=== PATIENT | male | born 1950 | race Caucasian/White ===

== ENCOUNTER 2017-06-16 07:21 | Day surgery (SDC) | payer MEDICARE, OTHER ==
[~2017-06-16 07:21] MED LIST: SOD CHLORIDE 0.9% 1,000 ML IV
[2017-06-16 08:23] LABS: ADD MAN DIFF? NO
[2017-06-16 08:29] LABS: BASOPHIL # 0.1 10^3/ul (0.0-0.1); BASOPHILS % 0.7 % (0.0-2.0); EOSINOPHILS # 0.2 10^3/ul (0.0-0.5); EOSINOPHILS % 2.8 % (0.0-7.0); HEMATOCRIT 47.3 % (42.0-52.0); HEMOGLOBIN 15.6 g/dl (14.0-18.0); LYMPHOCYTES # 2.6 10^3/ul (0.8-2.9); LYMPHOCYTES % 35.8 % (15.0-51.0); MEAN CORPUSCULAR VOLUME 84.8 fl (82.0-101.0); MEAN PLATELET VOLUME 9.8 fl (7.4-10.4); MONOCYTE # 0.6 10^3/ul (0.3-0.9); MONOCYTES % 7.7 % (0.0-11.0); NEUTROPHIL # 3.7 10^3/ul (1.6-7.5); NEUTROPHILS % 52.4 % (39.0-77.0); PLATELET COUNT 209 10^3/UL (140-415); RED BLOOD COUNT 5.58 10^6/ul (4.70-6.10); RED CELL DISTRIBUTION WIDTH 13.2 % (11.5-14.5)
[2017-06-16 08:29] LABS: WHITE BLOOD COUNT 7.1 10^3/ul (4.8-10.8)
[2017-06-16 08:49] LABS: CARBON DIOXIDE 27 mmol/L (21-31); CHLORIDE 107 mmol/L (97-110)
[2017-06-16 08:50] LABS: ALANINE AMINOTRANSFERASE 26 IU/L (13-69); ALBUMIN/GLOBULIN RATIO 1.37; ALKALINE PHOSPHATASE 54 IU/L (42-121); ANION GAP 14 (8-16); ASPARTATE AMINO TRANSFERASE 18 IU/L (15-46); CHOLESTEROL 149 mg/dl (100-200); CREATINE KINASE 62 IU/L (23-200); GLUCOSE 205 mg/dl (70-220); HDL CHOLESTEROL 37 mg/dl (30-78); LDL CHOLESTEROL,CALCULATED 81 mg/dl; TOTAL PROTEIN 6.9 g/dl (6.1-8.1); TRIGLYCERIDES 157 mg/dl (0-149)
[2017-06-16 08:55] LABS: SODIUM 143 mmol/L (135-144)
[2017-06-16 08:56] LABS: BILIRUBIN,INDIRECT 0.7 mg/dl (0-1.1); BILIRUBIN,TOTAL 0.7 mg/dl (0.2-1.3); BLOOD UREA NITROGEN 26 mg/dl (7-20); CALCIUM 9.4 mg/dl (8.4-10.2); CREATININE 1.03 mg/dl (0.61-1.24); POTASSIUM 4.9 mmol/L (3.5-5.1)
[2017-06-16 08:57] LABS: CK INDEX 1.9; TROPONIN-I 0.029 ng/ml (0.00-0.12)
[2017-06-16 08:58] LABS: CK-MB 1.18 ng/ml (0.0-2.4)
[2017-06-16 09:09] LABS: INR 0.92; PROTIME 12.4 Sec (11.9-14.9)
[2017-06-16 09:10] LABS: PARTIAL THROMBOPLASTIN TIME 28.4 Sec (25.0-35.0)
[2017-06-16] MEDS ORDERED: LIDOCAINE 1% (MDV) 20 ML INJ (09:44)
[2017-06-16] MEDS ORDERED: IODIXANOL LOCM 50 ML BTL (09:44)
[2017-06-16] MEDS ORDERED: MIDAZOLAM 1 MG/ML 2 ML INJ (09:44)
[2017-06-16] MEDS ORDERED: FENTAnyl 50 MCG/ML VIAL ×2 (09:44→11:14)
[2017-06-16] MEDS ORDERED: BIVALIRUDIN 250MG /NS 50 ML 50 ML IVPB (11:07)
[2017-06-16] MEDS ORDERED: IOHEXOL 350MG/ML 50 ML BTL (11:07)
[2017-06-16] MEDS ORDERED: IODIXANOL LOCM 100 ML BTL ×2 (11:07)
[2017-06-16] MEDS ORDERED: ACETAMINOPHEN 325 MG TAB PO (11:30)
[2017-06-16] MEDS ORDERED: morphine 2 MG INJ IV (11:30)
[2017-06-16] MEDS: SOD CHLORIDE 0.9% 1,000 ML IV (11:30)
[2017-06-16] MEDS ORDERED: GLUCOSE GEL 15 GRAM TUBE BUCCAL (12:00)
[2017-06-16] MEDS ORDERED: DEXTROSE 50% 50 ML SYRINGE IV ×2 (12:00)
[2017-06-16] MEDS ORDERED: GLUCAGON 1 MG INJ IM (12:00)
[2017-06-16] MEDS ORDERED: GLUCOSE GEL 15 GRAM TUBE PO ×2 (12:00)
[2017-06-16] MEDS: INSULIN ASPART [NOVOLOG] 3 ML PEN SC (16:30)
[2017-06-17] MEDS ORDERED: ACCU-CHEK XX (02:00)
== END 2017-06-16 19:30 | disposition home or self-care (01) ==
LOC: SDS 07:21
DX: I73.9 Peripheral vascular disease, unspecified (principal); I25.10 Atherosclerotic heart disease of native coronary artery without angina pectoris
CPT/HCPCS: 37224; 75710; 80053; 80061; 82550; 82553; 82962; 84484; 85025; 85610; 85730; 93005

== ENCOUNTER 2017-09-26 05:52 | Inpatient (IN) | payer MEDICARE, OTHER ==
[2017-09-26] MEDS: NITROGLYCERIN (SL) 0.4 MG TAB SL (06:14)
[2017-09-26 06:16] LABS: ADD MAN DIFF? NO
[2017-09-26] MEDS: FUROSEMIDE 40 MG INJ IV (06:18)
[2017-09-26 06:19] LABS: WHITE BLOOD COUNT 20.7 10^3/ul (4.8-10.8)
[2017-09-26 06:19] LABS: ABNORMAL IP MESSAGE 1; BASOPHIL # 0.1 10^3/ul (0.0-0.1); BASOPHILS % 0.7 % (0.0-2.0); EOSINOPHILS # 0.4 10^3/ul (0.0-0.5); EOSINOPHILS % 1.8 % (0.0-7.0); HEMATOCRIT 54.6 % (42.0-52.0); HEMOGLOBIN 17.1 g/dl (14.0-18.0); LYMPHOCYTES # 11.4 10^3/ul (0.8-2.9); MEAN CORPUSCULAR HEMOGLOBIN 27.7 pg (29.0-33.0); MEAN CORPUSCULAR HGB CONC 31.3 g/dl (32.0-37.0); MEAN CORPUSCULAR VOLUME 88.5 fl (82.0-101.0); MEAN PLATELET VOLUME 10.5 fl (7.4-10.4); MONOCYTE # 1.1 10^3/ul (0.3-0.9); MONOCYTES % 5.4 % (0.0-11.0); NEUTROPHIL # 7.5 10^3/ul (1.6-7.5); NEUTROPHILS % 36.4 % (39.0-77.0); PLATELET COUNT 334 10^3/UL (140-415); POSITIVE DIFF @See below; RED BLOOD COUNT 6.17 10^6/ul (4.70-6.10); RED CELL DISTRIBUTION WIDTH 13.7 % (11.5-14.5)
[2017-09-26 06:22] LABS: AADO2 Arterial 592.2 mmHg (7.0-24.0); Allen Test ACCEPTAB; Arterial Base Excess -7.8 mmol/L (-3.0-3); Arterial Blood Gas Oxygen Sat 90.4 mmHG (95.0-98.0); Arterial COHb 0.2 % (0.0-3.0); Arterial HCO3 20.2 mmol/L (22.0-26.0); Arterial MetHb 0.2 % (0.0-1.5); Arterial Total Hemglobin 16.7 g/dl (12.0-18.0); Arterial pCO2 50.6 mmhg (35-45); Blood Gas IEPAP 18/8; Blood Gas PS 10; MODE MASK - BIPAP; Site Left Radial
[2017-09-26 06:38] LABS: INR 0.92; PROTIME 12.4 Sec (11.9-14.9)
[2017-09-26 06:39] LABS: PARTIAL THROMBOPLASTIN TIME 28.1 Sec (25.0-35.0)
[2017-09-26] MEDS: ASPIRIN 81 MG TAB PO (06:45)
[2017-09-26 06:49] LABS: ALANINE AMINOTRANSFERASE 20 IU/L (13-69); ALBUMIN 4.2 g/dl (3.3-4.9); ALKALINE PHOSPHATASE 77 IU/L (42-121); ANION GAP 18 (8-16); ASPARTATE AMINO TRANSFERASE 27 IU/L (15-46); BILIRUBIN,INDIRECT 0.5 mg/dl (0-1.1); BILIRUBIN,TOTAL 0.5 mg/dl (0.2-1.3); BLOOD UREA NITROGEN 20 mg/dl (7-20); CALCIUM 9.2 mg/dl (8.4-10.2); CARBON DIOXIDE 19 mmol/L (21-31); CHLORIDE 107 mmol/L (97-110); CREATININE 1.05 mg/dl (0.61-1.24); LIPASE 172 U/L (23-300); POTASSIUM 4.6 mmol/L (3.5-5.1); SODIUM 139 mmol/L (135-144); TOTAL PROTEIN 7.2 g/dl (6.1-8.1)
[2017-09-26 06:52] LABS: GLUCOSE 449 mg/dl (70-220)
[2017-09-26] MEDS: CEFTRIAXONE 1 GM/50 ML (PMX) 50 ML IVPB ×2 (06:56→22:01)
[2017-09-26 07:01] LABS: B-TYPE NATRIURETIC PEPTIDE 1180 PG/ML (0-125); TROPONIN-I 0.051 ng/ml (0.000-0.120)
[2017-09-26] MEDS: AZITHROMYCIN 500MG/NS (PMX) 250 ML IVPB (07:43)
[2017-09-26 07:54] LABS: ADD UMIC YES; UR ASCORBIC ACID NEGATIVE (NEGATIVE); UR BILIRUBIN (Dip) NEGATIVE (NEGATIVE); UR BLOOD (Dip) 1+ mg/dL (NEGATIVE); UR CLARITY CLEAR (CLEAR); UR COLOR STRAW (YELLOW); UR GLUCOSE (Dip) 3+ mg/dL (NEGATIVE); UR KETONES (Dip) NEGATIVE (NEGATIVE); UR LEUKOCYTE ESTERASE (Dip) NEGATIVE Leu/ul (NEGATIVE); UR NITRITE (Dip) NEGATIVE (NEGATIVE); UR RBC 0 /HPF (0-5); UR SPECIFIC GRAVITY (Dip) 1.007 (1.003-1.030); UR TOTAL PROTEIN (Dip) 1+ mg/dl (NEGATIVE); UR UROBILINOGEN (Dip) NEGATIVE (NEGATIVE); UR WBC 1 /HPF (0-5)
[2017-09-26] MEDS ORDERED: ACETAMINOPHEN 325 MG TAB PO (08:00)
[2017-09-26] MEDS ORDERED: ONDANSETRON 4 MG INJ IV (08:00)
[2017-09-26 08:13] LABS: LACTIC ACID 2.6 mmol/L (0.5-2.0)
[2017-09-26 08:16] LABS: AADO2 Arterial 430.5 mmHg (7.0-24.0); Allen Test ACCEPTAB; Arterial Base Excess -5.8 mmol/L (-3.0-3); Arterial Blood Gas Oxygen Sat 99.1 mmHG (95.0-98.0); Arterial COHb 0.3 % (0.0-3.0); Arterial Fraction of Oxyhgb 98.5 % (93.0-99.0); Arterial HCO3 20.8 mmol/L (22.0-26.0); Arterial MetHb 0.3 % (0.0-1.5); Arterial Total Hemglobin 16.6 g/dl (12.0-18.0); Arterial pCO2 44.8 mmhg (35-45); Blood Gas IEPAP 18/8; MODE MASK - BIPAP; Site Right Radial
[2017-09-26] MEDS: SOD CHLORIDE 0.9% 1,000 ML IV (08:46)
[2017-09-26 08:55] LABS: LACTIC ACID 2.4 mmol/L (0.5-2.0)
[2017-09-26] MEDS: LORAZEPAM 2 MG INJ IV (09:21)
[2017-09-26 11:07] LABS: LACTIC ACID 1.8 mmol/L (0.5-2.0)
[2017-09-26] MEDS ORDERED: DEXTROSE 50% 50 ML SYRINGE IV ×4 (14:00)
[2017-09-26] MEDS ORDERED: GLUCOSE GEL 15 GRAM TUBE PO ×4 (14:00)
[2017-09-26] MEDS ORDERED: GLUCAGON 1 MG INJ IM ×2 (14:00)
[2017-09-26] MEDS ORDERED: GLUCOSE GEL 15 GRAM TUBE BUCCAL ×2 (14:00)
[2017-09-26] MEDS: metFORMIN 850 MG TAB PO (18:23)
[2017-09-26] MEDS: INSULIN ASPART [NOVOLOG] 3 ML PEN SC ×2 (18:28→22:08)
[2017-09-26] MEDS: INSULIN GLARGINE [LANTus] (100 UNITS/ML) SYG SC (21:00)
[2017-09-26] MEDS: ATORVASTATIN 10 MG TAB PO (21:10)
[2017-09-26] MEDS: ALBUTEROL/IPRATROPIUM (NEB) 3 ML AMP HHN (22:12)
[2017-09-27] MEDS: ACCU-CHEK XX (02:00)
[2017-09-27] MEDS: PANTOPRAZOLE (EC) 40 MG TAB PO (06:46)
[2017-09-27] MEDS: INSULIN ASPART [NOVOLOG] 3 ML PEN SC ×6 (08:03→21:37)
[2017-09-27] MEDS: metFORMIN 850 MG TAB PO ×3 (08:14→17:33)
[2017-09-27] MEDS: PAROXETINE (CR) 12.5 MG TAB PO (08:15)
[2017-09-27] MEDS: ASPIRIN 81 MG TAB PO (08:17)
[2017-09-27] MEDS: CLOPIDOGREL 75 MG TAB PO (08:17)
[2017-09-27] MEDS: CEFTRIAXONE 1 GM/50 ML (PMX) 50 ML IVPB ×2 (08:51→21:38)
[2017-09-27] MEDS: SPIRONOLACTONE 25 MG TAB PO (09:00)
[2017-09-27] MEDS: ALLOPURINOL 100 MG TAB PO (09:02)
[2017-09-27 09:03] LABS: ADD MAN DIFF? NO
[2017-09-27 09:10] LABS: WHITE BLOOD COUNT 8.2 10^3/ul (4.8-10.8)
[2017-09-27 09:10] LABS: BASOPHIL # 0.1 10^3/ul (0.0-0.1); BASOPHILS % 0.6 % (0.0-2.0); EOSINOPHILS # 0.1 10^3/ul (0.0-0.5); EOSINOPHILS % 1.7 % (0.0-7.0); HEMATOCRIT 37.9 % (42.0-52.0); HEMOGLOBIN 12.5 g/dl (14.0-18.0); LYMPHOCYTES # 2.1 10^3/ul (0.8-2.9); MEAN CORPUSCULAR HEMOGLOBIN 27.7 pg (29.0-33.0); MEAN PLATELET VOLUME 10.6 fl (7.4-10.4); MONOCYTE # 0.5 10^3/ul (0.3-0.9); MONOCYTES % 6.6 % (0.0-11.0); NEUTROPHIL # 5.3 10^3/ul (1.6-7.5); NEUTROPHILS % 64.9 % (39.0-77.0); PLATELET COUNT 170 10^3/UL (140-415); RED BLOOD COUNT 4.51 10^6/ul (4.70-6.10)
[2017-09-27 09:33] LABS: INR 1.08; PROTIME 14.1 Sec (11.9-14.9); PT RATIO 1.1
[2017-09-27 09:35] LABS: CREATINE KINASE 59 IU/L (23-200)
[2017-09-27 09:40] LABS: ALANINE AMINOTRANSFERASE 24 IU/L (13-69); ALBUMIN 3.4 g/dl (3.3-4.9); ALBUMIN/GLOBULIN RATIO 1.21; ALKALINE PHOSPHATASE 44 IU/L (42-121); ANION GAP 10 (8-16); ASPARTATE AMINO TRANSFERASE 18 IU/L (15-46); BLOOD UREA NITROGEN 20 mg/dl (7-20); CALCIUM 8.5 mg/dl (8.4-10.2); CARBON DIOXIDE 28 mmol/L (21-31); CHLORIDE 103 mmol/L (97-110); CHOL/HDL RATIO 3.5 RATIO; CHOLESTEROL 137 mg/dl (100-200); CREATININE 0.86 mg/dl (0.61-1.24); GLUCOSE 214 mg/dl (70-220); HDL CHOLESTEROL 39 mg/dl (30-78); LDL CHOLESTEROL,CALCULATED 72 mg/dl; POTASSIUM 3.8 mmol/L (3.5-5.1); SODIUM 137 mmol/L (135-144); TOTAL PROTEIN 6.2 g/dl (6.1-8.1); TRIGLYCERIDES 128 mg/dl (0-149)
[2017-09-27 09:41] LABS: DIGOXIN 0.4 ng/ml (1.0-2.0)
[2017-09-27 09:45] LABS: B-TYPE NATRIURETIC PEPTIDE 2940 PG/ML (0-125)
[2017-09-27 09:47] LABS: CK INDEX 1.7; CK-MB 1.03 ng/ml (0.0-2.4); TROPONIN-I 0.117 ng/ml (0.000-0.120)
[2017-09-27 09:48] LABS: MAGNESIUM 1.3 mg/dl (1.7-2.5)
[2017-09-27 09:48] LABS: PHOSPHORUS 3.3 mg/dl (2.5-4.9)
[2017-09-27] MEDS: AZITHROMYCIN 500MG/NS (PMX) 250 ML IVPB (09:48)
[2017-09-27 10:06] LABS: THYROID STIMULATING HORMONE 0.839 MIU/L (0.465-4.680)
[2017-09-27 10:36] LABS: FREE T4 (FREE THYROXINE) 0.99 ng/dl (0.78-2.44)
[2017-09-27] MEDS: FLUTICASONE/VILANTEROL 100-25 INH (12:38)
[2017-09-27] MEDS: DIGOXIN 0.125 MG TAB PO (12:39)
[2017-09-27] MEDS: ACETAMINOPHEN 500 MG TAB PO (13:44)
[2017-09-27] MEDS: MAGNESIUM SULFATE 2 GM/50 ML 50 ML IVPB (14:08)
[2017-09-27] MEDS ORDERED: LORAZEPAM 2 MG INJ IV (19:00)
[2017-09-27] MEDS ORDERED: INSULIN GLARGINE [LANTus] (100 UNITS/ML) SYG SC (20:00)
[2017-09-27] MEDS: ATORVASTATIN 10 MG TAB PO (21:39)
[2017-09-27] MEDS: INSULIN GLARGINE [LANTus] (100 UNITS/ML) SYG SC (21:42)
[2017-09-27] MEDS: LORAZEPAM 0.5 MG TAB PO (22:40)
[2017-09-28] MEDS: ACCU-CHEK XX (02:00)
[2017-09-28 06:35] LABS: ADD MAN DIFF? NO
[2017-09-28 06:40] LABS: BASOPHILS % 0.6 % (0.0-2.0); EOSINOPHILS # 0.2 10^3/ul (0.0-0.5); EOSINOPHILS % 2.8 % (0.0-7.0); HEMATOCRIT 36.9 % (42.0-52.0); HEMOGLOBIN 12.2 g/dl (14.0-18.0); LYMPHOCYTES # 2.2 10^3/ul (0.8-2.9); LYMPHOCYTES % 29.8 % (15.0-51.0); MEAN CORPUSCULAR HEMOGLOBIN 28.3 pg (29.0-33.0); MEAN CORPUSCULAR HGB CONC 33.1 g/dl (32.0-37.0); MEAN CORPUSCULAR VOLUME 85.6 fl (82.0-101.0); MEAN PLATELET VOLUME 10.3 fl (7.4-10.4); MONOCYTE # 0.6 10^3/ul (0.3-0.9); MONOCYTES % 8.5 % (0.0-11.0); NEUTROPHIL # 4.2 10^3/ul (1.6-7.5); NEUTROPHILS % 57.9 % (39.0-77.0); PLATELET COUNT 166 10^3/UL (140-415); RED BLOOD COUNT 4.31 10^6/ul (4.70-6.10); RED CELL DISTRIBUTION WIDTH 13.6 % (11.5-14.5)
[2017-09-28 06:40] LABS: WHITE BLOOD COUNT 7.3 10^3/ul (4.8-10.8)
[2017-09-28 07:22] LABS: ANION GAP 9 (8-16); BLOOD UREA NITROGEN 19 mg/dl (7-20); CALCIUM 8.3 mg/dl (8.4-10.2); CARBON DIOXIDE 26 mmol/L (21-31); CHLORIDE 104 mmol/L (97-110); CREATININE 0.83 mg/dl (0.61-1.24); GLUCOSE 234 mg/dl (70-220); MAGNESIUM 1.6 mg/dl (1.7-2.5); PHOSPHORUS 3.1 mg/dl (2.5-4.9); POTASSIUM 4.3 mmol/L (3.5-5.1); SODIUM 135 mmol/L (135-144)
[2017-09-28] MEDS: PANTOPRAZOLE (EC) 40 MG TAB PO (07:32)
[2017-09-28] MEDS: AZITHROMYCIN 500MG/NS (PMX) 250 ML IVPB (07:50)
[2017-09-28] MEDS: CEFTRIAXONE 1 GM/50 ML (PMX) 50 ML IVPB ×2 (07:51→20:48)
[2017-09-28] MEDS: ASPIRIN 81 MG TAB PO (07:52)
[2017-09-28] MEDS: ALLOPURINOL 100 MG TAB PO (07:52)
[2017-09-28] MEDS: SPIRONOLACTONE 25 MG TAB PO (07:52)
[2017-09-28] MEDS: EMPAGLIFLOZIN 10 MG TABLET PO (07:52)
[2017-09-28] MEDS: CLOPIDOGREL 75 MG TAB PO (07:52)
[2017-09-28] MEDS: FLUTICASONE/VILANTEROL 100-25 INH (07:52)
[2017-09-28] MEDS: PAROXETINE (CR) 12.5 MG TAB PO (07:52)
[2017-09-28] MEDS: INSULIN ASPART [NOVOLOG] 3 ML PEN SC ×7 (08:22→20:49)
[2017-09-28] MEDS: ALBUTEROL/IPRATROPIUM (NEB) 3 ML AMP HHN (08:27)
[2017-09-28] MEDS: MAGNESIUM SULFATE 2 GM/50 ML 50 ML IVPB (09:17)
[2017-09-28] MEDS: DIGOXIN 0.125 MG TAB PO (12:35)
[2017-09-28] MEDS: ACETAMINOPHEN 500 MG TAB PO (15:35)
[2017-09-28] MEDS: ATORVASTATIN 10 MG TAB PO (20:48)
[2017-09-28] MEDS: INSULIN GLARGINE [LANTus] (100 UNITS/ML) SYG SC (20:50)
[2017-09-28] MEDS: LORAZEPAM 0.5 MG TAB PO (21:00)
[2017-09-29] MEDS: ACCU-CHEK XX (02:00)
[2017-09-29] MEDS: PANTOPRAZOLE (EC) 40 MG TAB PO (06:19)
[2017-09-29] MEDS: CEFTRIAXONE 1 GM/50 ML (PMX) 50 ML IVPB (08:08)
[2017-09-29] MEDS: AZITHROMYCIN 500MG/NS (PMX) 250 ML IVPB (08:10)
[2017-09-29] MEDS: CLOPIDOGREL 75 MG TAB PO (08:14)
[2017-09-29] MEDS: ASPIRIN 81 MG TAB PO (08:14)
[2017-09-29] MEDS: SPIRONOLACTONE 25 MG TAB PO (08:14)
[2017-09-29] MEDS: EMPAGLIFLOZIN 10 MG TABLET PO (08:14)
[2017-09-29] MEDS: ALLOPURINOL 100 MG TAB PO (08:14)
[2017-09-29] MEDS: FLUTICASONE/VILANTEROL 100-25 INH (08:15)
[2017-09-29] MEDS: PAROXETINE (CR) 12.5 MG TAB PO (08:19)
[2017-09-29] MEDS: INSULIN ASPART [NOVOLOG] 3 ML PEN SC ×4 (08:26→11:51)
[2017-09-29 09:59] LABS: ANION GAP 11 (8-16); BLOOD UREA NITROGEN 21 mg/dl (7-20); CALCIUM 8.9 mg/dl (8.4-10.2); CARBON DIOXIDE 27 mmol/L (21-31); CHLORIDE 104 mmol/L (97-110); CREATININE 0.94 mg/dl (0.61-1.24); GLUCOSE 170 mg/dl (70-220); MAGNESIUM 1.9 mg/dl (1.7-2.5); POTASSIUM 4.4 mmol/L (3.5-5.1); SODIUM 138 mmol/L (135-144)
[2017-09-29] MEDS: DIGOXIN 0.125 MG TAB PO (11:47)
[2017-10-04 14:06] LABS: PROCALCITONIN 4.76 ng/mL (<0.10)
== END 2017-09-29 12:40 | disposition home or self-care (01) | DRG 871 ==
LOC: E/R 05:52 → TEL 07:48
DX: A41.9 Sepsis, unspecified organism (principal); J18.9 Pneumonia, unspecified organism; J96.01 Acute respiratory failure with hypoxia; E11.10 Type 2 diabetes mellitus with ketoacidosis without coma; I50.43 Acute on chronic combined systolic (congestive) and diastolic (congestive) heart failure; E87.2 Acidosis; N39.0 Urinary tract infection, site not specified; J44.1 Chronic obstructive pulmonary disease with (acute) exacerbation; I11.0 Hypertensive heart disease with heart failure; I25.5 Ischemic cardiomyopathy; I25.10 Atherosclerotic heart disease of native coronary artery without angina pectoris; E78.5 Hyperlipidemia, unspecified; K21.9 Gastro-esophageal reflux disease without esophagitis; B95.4 Other streptococcus as the cause of diseases classified elsewhere; I73.9 Peripheral vascular disease, unspecified; L30.9 Dermatitis, unspecified; Y95 Nosocomial condition; Z79.4 Long term (current) use of insulin; Z79.02 Long term (current) use of antithrombotics/antiplatelets; Z79.82 Long term (current) use of aspirin; Z87.891 Personal history of nicotine dependence; Z95.0 Presence of cardiac pacemaker
CPT/HCPCS: 36415; 36600; 71045; 80048; 80053; 80061; 80162; 81001; 82550; 82553; 82803; 82962; 83605; 83690; 83735; 83880; 84100; 84145; 84439; 84443; 84484; 85025; 85610; 85730; 87040; 87070; 87086; 93005; 94640; 94660; 94664; 96374; 96375; 97161; 99291-25

== ENCOUNTER 2018-05-10 11:34 | Observation (INO) | payer MEDICARE, OTHER ==
[2018-05-10 15:34] LABS: HEMATOCRIT 45.1 % (42.0-52.0); MEAN CORPUSCULAR HEMOGLOBIN 28.4 pg (29.0-33.0); MEAN CORPUSCULAR HGB CONC 33.3 g/dl (32.0-37.0); MEAN CORPUSCULAR VOLUME 85.4 fl (82.0-101.0); MEAN PLATELET VOLUME 10.3 fl (7.4-10.4); POSITIVE DIFF @See below; RED BLOOD COUNT 5.28 10^6/ul (4.70-6.10); RED CELL DISTRIBUTION WIDTH 12.5 % (11.5-14.5)
[2018-05-10 15:34] LABS: WHITE BLOOD COUNT 5.5 10^3/ul (4.8-10.8)
[2018-05-10 15:35] LABS: PLATELET COUNT 258 10^3/UL (140-415)
[2018-05-10 15:36] LABS: ADD MAN DIFF? YES
[2018-05-10 15:47] LABS: ALANINE AMINOTRANSFERASE 16 IU/L (13-69); ALBUMIN 4.5 g/dl (3.3-4.9); ALBUMIN/GLOBULIN RATIO 1.21; ANION GAP 11 (5-13); ASPARTATE AMINO TRANSFERASE 34 IU/L (15-46); BILIRUBIN,INDIRECT 0.6 mg/dl (0-1.1); BILIRUBIN,TOTAL 0.6 mg/dl (0.2-1.3); BLOOD UREA NITROGEN 25 mg/dl (7-20); CALCIUM 9.9 mg/dl (8.4-10.2); CARBON DIOXIDE 27 mmol/L (21-31); CHLORIDE 101 mmol/L (97-110); Estimated GFR > 60 mL/min (>60); GLUCOSE 170 mg/dl (70-220); POTASSIUM 5.2 mmol/L (3.5-5.1); SODIUM 139 mmol/L (135-144); TOTAL PROTEIN 8.2 g/dl (6.1-8.1)
[2018-05-10 15:59] LABS: B-TYPE NATRIURETIC PEPTIDE 2020 PG/ML (0-125); TROPONIN-I 0.014 ng/ml (0.000-0.120)
[2018-05-10 16:06] LABS: LACTIC ACID 1.6 mmol/L (0.5-2.0)
[2018-05-10 16:08] LABS: ANISOCYTOSIS 3+ (0-0); BAND NEUTROPHILS #M 0.2 10^3/ul (0.0-0.6); BAND NEUTROPHILS % (M) 5 % (0-4); LYMPHOCYTES #M 1.6 10^3/ul (0.8-2.9); LYMPHOCYTES % (M) 30 % (15-51); MICROCYTOSIS 3+ (0-0); MONOCYTE #M 0.5 10^3/ul (0.3-0.9); MONOCYTES % (M) 10 % (0-11); PLATELET ESTIMATE NORMAL; POIKILOCYTOSIS 1+ (0-0); REACTIVE LYMPHOCYTES #M 0.6 10^3/ul (0.0-0.0); REACTIVE LYMPHOCYTES% (M) 11 % (0-0); SEG NEUT #M 2.4 10^3/ul (1.6-7.5); SEGMENTED NEUTROPHILS (M) % 44 % (39-77); SMUDGE%M 6 % (0-0)
[2018-05-10 16:23] LABS: INR 0.91; PROTIME 12.4 Sec (11.9-14.9)
[2018-05-10 16:24] LABS: PARTIAL THROMBOPLASTIN TIME 30.4 Sec (23.0-35.0)
[2018-05-10 16:33] LABS: ALKALINE PHOSPHATASE 47 IU/L (42-121)
[2018-05-10] MEDS: FUROSEMIDE 20 MG INJ IV (19:00)
[2018-05-10] MEDS: ACCU-CHEK XX (21:00)
[2018-05-10] MEDS: ATORVASTATIN 20 MG TAB PO (23:40)
[2018-05-10] MEDS: FISH OIL 1,000 MG CAP PO (23:43)
[2018-05-11] MEDS: ZOLPIDEM 5 MG TAB PO (00:13)
[2018-05-11 00:44] LABS: ADD UMIC YES; UR ASCORBIC ACID NEGATIVE (NEGATIVE); UR BILIRUBIN (Dip) NEGATIVE (NEGATIVE); UR BLOOD (Dip) 2+ mg/dL (NEGATIVE); UR CLARITY CLEAR (CLEAR); UR COLOR YELLOW (YELLOW); UR GLUCOSE (Dip) 1+ mg/dL (NEGATIVE); UR KETONES (Dip) NEGATIVE (NEGATIVE); UR LEUKOCYTE ESTERASE (Dip) NEGATIVE Leu/ul (NEGATIVE); UR NITRITE (Dip) NEGATIVE (NEGATIVE); UR RBC 2 /HPF (0-5); UR SPECIFIC GRAVITY (Dip) 1.014 (1.003-1.030); UR TOTAL PROTEIN (Dip) NEGATIVE (NEGATIVE); UR UROBILINOGEN (Dip) NEGATIVE (NEGATIVE); UR WBC 0 /HPF (0-5)
[2018-05-11 01:48] LABS: SODIUM,URINE RANDOM 112 mmol/L (30-90)
[2018-05-11 01:48] LABS: CREATININE,URINE RANDOM 113.25 mg/dl (20-370)
[2018-05-11] MEDS: PANTOPRAZOLE (EC) 40 MG TAB PO (06:09)
[2018-05-11 07:51] LABS: ADD MAN DIFF? NO
[2018-05-11] MEDS: ACCU-CHEK XX (07:53)
[2018-05-11 07:54] LABS: BASOPHILS % 0.2 % (0.0-2.0); EOSINOPHILS # 0.1 10^3/ul (0.0-0.5); EOSINOPHILS % 1.7 % (0.0-7.0); HEMATOCRIT 39.4 % (42.0-52.0); HEMOGLOBIN 12.8 g/dl (14.0-18.0); LYMPHOCYTES # 1.7 10^3/ul (0.8-2.9); LYMPHOCYTES % 35.5 % (15.0-51.0); MEAN CORPUSCULAR HEMOGLOBIN 27.9 pg (29.0-33.0); MEAN CORPUSCULAR HGB CONC 32.5 g/dl (32.0-37.0); MEAN CORPUSCULAR VOLUME 85.8 fl (82.0-101.0); MEAN PLATELET VOLUME 10.2 fl (7.4-10.4); MONOCYTE # 0.5 10^3/ul (0.3-0.9); MONOCYTES % 10.9 % (0.0-11.0); NEUTROPHIL # 2.4 10^3/ul (1.6-7.5); NEUTROPHILS % 51.1 % (39.0-77.0); PLATELET COUNT 153 10^3/UL (140-415); RED BLOOD COUNT 4.59 10^6/ul (4.70-6.10); RED CELL DISTRIBUTION WIDTH 12.8 % (11.5-14.5)
[2018-05-11 07:54] LABS: WHITE BLOOD COUNT 4.7 10^3/ul (4.8-10.8)
[2018-05-11 08:11] LABS: ANION GAP 13 (5-13); BLOOD UREA NITROGEN 25 mg/dl (7-20); CALCIUM 9.2 mg/dl (8.4-10.2); CARBON DIOXIDE 27 mmol/L (21-31); CHLORIDE 100 mmol/L (97-110); CREATININE 0.98 mg/dl (0.61-1.24); Estimated GFR > 60 mL/min (>60); GLUCOSE 238 mg/dl (70-220); MAGNESIUM 1.2 mg/dl (1.7-2.5); PHOSPHORUS 4.6 mg/dl (2.5-4.9); POTASSIUM 4.2 mmol/L (3.5-5.1); SODIUM 140 mmol/L (135-144)
[2018-05-11] MEDS: CLOPIDOGREL 75 MG TAB PO (09:08)
[2018-05-11] MEDS: FISH OIL 1,000 MG CAP PO ×2 (09:08→21:06)
[2018-05-11] MEDS: ALLOPURINOL 100 MG TAB PO (09:09)
[2018-05-11] MEDS: FUROSEMIDE 40 MG TAB PO (09:09)
[2018-05-11] MEDS ORDERED: GLUCOSE GEL 15 GRAM TUBE PO ×2 (09:30)
[2018-05-11] MEDS ORDERED: DEXTROSE 50% 50 ML SYRINGE IV ×2 (09:30)
[2018-05-11] MEDS ORDERED: GLUCOSE GEL 15 GRAM TUBE BUCCAL (09:30)
[2018-05-11] MEDS ORDERED: ALBUTEROL/IPRATROPIUM (NEB) 3 ML AMP HHN (09:30)
[2018-05-11] MEDS ORDERED: GLUCAGON 1 MG INJ IM (09:30)
[2018-05-11] MEDS ORDERED: ENOXAPARIN 40 MG/0.4 ML SYG SC (10:00)
[2018-05-11] MEDS ORDERED: MAGNESIUM SULFATE 4 GM/100 ML 100 ML IVPB (10:30)
[2018-05-11] MEDS: AZITHROMYCIN 500MG/NS (PMX) 250 ML IVPB (10:38)
[2018-05-11] MEDS: MAGNESIUM SULFATE 2 GM/50 ML 50 ML IVPB (10:39)
[2018-05-11] MEDS: FLUTICASONE 0.05% 16 GM NAS SPRAY NASAL (10:39)
[2018-05-11] MEDS: INSULIN GLARGINE [LANTus] (100 UNITS/ML) SYG SC (12:00)
[2018-05-11] MEDS: INSULIN ASPART [NOVOLOG] 3 ML PEN SC ×3 (12:00→21:23)
[2018-05-11] MEDS: DIGOXIN 0.125 MG TAB PO (12:38)
[2018-05-11] MEDS: FLUCONAZOLE 100 MG TAB PO (14:25)
[2018-05-11] MEDS: NYSTATIN SUSP 5 ML CUP PO ×3 (14:25→21:07)
[2018-05-11] MEDS: ENOXAPARIN 40 MG/0.4 ML SYG SC (14:31)
[2018-05-11] MEDS: MAG SULFATE 2GM IN 50 ML IVPB (16:19)
[2018-05-11] MEDS: IVABRADINE HCL 5 MG TABLET PO (17:32)
[2018-05-11] MEDS: ATORVASTATIN 20 MG TAB PO (21:06)
[2018-05-11] MEDS: CHLORHEXIDINE GLUCONATE 15 ML UD CUP MT (21:06)
[2018-05-12] MEDS: ACCU-CHEK XX (02:00)
[2018-05-12] MEDS: PANTOPRAZOLE (EC) 40 MG TAB PO (06:21)
[2018-05-12 06:49] LABS: ADD MAN DIFF? NO
[2018-05-12 06:52] LABS: WHITE BLOOD COUNT 5.6 10^3/ul (4.8-10.8)
[2018-05-12 06:52] LABS: BASOPHILS % 0.4 % (0.0-2.0); EOSINOPHILS # 0.2 10^3/ul (0.0-0.5); EOSINOPHILS % 3.2 % (0.0-7.0); HEMATOCRIT 39.4 % (42.0-52.0); HEMOGLOBIN 12.7 g/dl (14.0-18.0); LYMPHOCYTES # 2.3 10^3/ul (0.8-2.9); LYMPHOCYTES % 41.8 % (15.0-51.0); MEAN CORPUSCULAR HEMOGLOBIN 27.5 pg (29.0-33.0); MEAN CORPUSCULAR HGB CONC 32.2 g/dl (32.0-37.0); MEAN CORPUSCULAR VOLUME 85.5 fl (82.0-101.0); MEAN PLATELET VOLUME 10.4 fl (7.4-10.4); MONOCYTE # 0.5 10^3/ul (0.3-0.9); MONOCYTES % 9.5 % (0.0-11.0); NEUTROPHIL # 2.5 10^3/ul (1.6-7.5); NEUTROPHILS % 44.7 % (39.0-77.0); PLATELET COUNT 156 10^3/UL (140-415); POSITIVE DIFF @See below; RED BLOOD COUNT 4.61 10^6/ul (4.70-6.10); RED CELL DISTRIBUTION WIDTH 12.5 % (11.5-14.5)
[2018-05-12 07:42] LABS: ANION GAP 12 (5-13); BLOOD UREA NITROGEN 30 mg/dl (7-20); CALCIUM 9.2 mg/dl (8.4-10.2); CARBON DIOXIDE 28 mmol/L (21-31); CHLORIDE 100 mmol/L (97-110); CREATININE 0.95 mg/dl (0.61-1.24); Estimated GFR > 60 mL/min (>60); GLUCOSE 261 mg/dl (70-220); MAGNESIUM 1.8 mg/dl (1.7-2.5); PHOSPHORUS 5.4 mg/dl (2.5-4.9); POTASSIUM 4.5 mmol/L (3.5-5.1); SODIUM 140 mmol/L (135-144)
[2018-05-12] MEDS: IVABRADINE HCL 5 MG TABLET PO (07:50)
[2018-05-12] MEDS: INSULIN GLARGINE [LANTus] (100 UNITS/ML) SYG SC (07:54)
[2018-05-12] MEDS: INSULIN ASPART [NOVOLOG] 3 ML PEN SC ×2 (07:54→11:49)
[2018-05-12] MEDS: CHLORHEXIDINE GLUCONATE 15 ML UD CUP MT (08:19)
[2018-05-12] MEDS: CLOPIDOGREL 75 MG TAB PO (08:19)
[2018-05-12] MEDS: ALLOPURINOL 100 MG TAB PO (08:19)
[2018-05-12] MEDS: AZITHROMYCIN 250 MG TAB PO (08:19)
[2018-05-12] MEDS: NYSTATIN SUSP 5 ML CUP PO (08:19)
[2018-05-12] MEDS: FUROSEMIDE 40 MG TAB PO (08:20)
[2018-05-12] MEDS: FISH OIL 1,000 MG CAP PO (08:20)
[2018-05-12] MEDS: FLUCONAZOLE 100 MG TAB PO (08:20)
[2018-05-12] MEDS: FLUTICASONE 0.05% 16 GM NAS SPRAY NASAL (08:21)
[2018-05-12] MEDS: ENOXAPARIN 40 MG/0.4 ML SYG SC (08:27)
[2018-05-12] MEDS: MAGNESIUM SULFATE 2 GM/50 ML 50 ML IVPB (09:12)
[2018-05-12] MEDS: SACUBITRIL/VALSARTAN (24mg-26mg) TABLET PO (11:14)
[2018-05-12 14:47] LABS: CREATININE, RANDOM URINE 111 mg/dL (20-320); MICROALBUMIN 4.6 mg/dL; MICROALBUMIN/CREATININE RATIO 41 (<30)
[2018-05-13] MEDS ORDERED: INSULIN GLARGINE [LANTus] (100 UNITS/ML) SYG SC (08:00)
== END 2018-05-12 13:15 | disposition home or self-care (01) ==
LOC: E/R 11:34 → TEL 18:48
DX: J20.9 Acute bronchitis, unspecified (principal); B37.0 Candidal stomatitis; I11.0 Hypertensive heart disease with heart failure; I50.9 Heart failure, unspecified; I25.10 Atherosclerotic heart disease of native coronary artery without angina pectoris; J44.9 Chronic obstructive pulmonary disease, unspecified; E11.9 Type 2 diabetes mellitus without complications; E78.5 Hyperlipidemia, unspecified; Z79.4 Long term (current) use of insulin; Z95.810 Presence of automatic (implantable) cardiac defibrillator
CPT/HCPCS: 36415; 71045; 80048; 80053; 81001; 81003; 82043; 82962; 83605; 83735; 83880; 84100; 84155; 84300; 84484; 85025; 85610; 85730; 93005; 99285-25; G0378